=== PATIENT | female | born 1960 | race Caucasian/White ===

== ENCOUNTER → 2020-11-03 | Outpatient (CLI) | payer BC, MEDICAID | LOC: M.MRI 11-02 07:30 | PROVIDERS: ATTEND Family Medicine | DX: Z12.31 Encounter for screening mammogram for malignant neoplasm of breast (principal); G89.29 Other chronic pain; M75.102 Unspecified rotator cuff tear or rupture of left shoulder, not specified as traumatic; M25.572 Pain in left ankle and joints of left foot; M25.412 Effusion, left shoulder ==

== ENCOUNTER → 2020-11-16 | Outpatient (CLI) | payer BC, MEDICAID | LOC: M.ULTRA 13:14 | PROVIDERS: ATTEND Family Medicine | DX: N63.14 Unspecified lump in the right breast, lower inner quadrant (principal); N63.20 Unspecified lump in the left breast, unspecified quadrant ==